=== PATIENT | male | born 1945 | race Caucasian/White ===

== ENCOUNTER 2017-06-19 19:24 | Emergency (ER) | payer OTHER, MEDICARE ==
[~2017-06-19] VITALS: Ht 175.3 cm; Wt 88.8 kg
[~2017-06-19 19:24] MED LIST: AMLODIPINE BESY10 MG PO; APRESOLINE100 MG PO; ATENOLOL25 MG PO; BUMETANIDE2 MG PO; BUPROPION HCL100 MG PO; CELLCEPT500 MG PO; CLONIDINE HCL0.1 MG PO; CO Q-1030 MG PO; CYCLOSPORINE25 M2 PO; Chronulac,Cephulac,E PO; FERROUS SULFAT325 MG PO; FUROSEMIDE20 MG PO; HYDRALAZINE HC100 MG PO; LEVAQUIN750 MG PO; LISINOPRIL20 MG PO; LISINOPRIL40 MG PO; LODINE200 MG PO; MYCOPHENOLATE250 MG PO; NYSTATIN15 GM TP; PERCOCET 5/31 TABLET PO; PRAVACHOL80 MG PO; PRAVASTATIN SOD20 MG PO; PRAVASTATIN SOD80 MG PO; PREDNISONE20 MG PO; PREDNISONE5 MG PO; TENORMIN25 MG PO; VENLAFAXINE HC100 MG PO; VENLAFAXINE HCL75 MG PO; WELLBUTRIN100 MG PO; XANAX0.5 MG PO; ZESTRIL20 MG PO
[2017-06-19 20:18] LABS: EOSINOPHIL (%) 8.5 % (0-5); EOSINOPHIL COUNT 0.9 K/uL (0-0.3); HEMATOCRIT 41.8 % (38.0-50.0); IMMATURE GRANULOCYTE (%) 0.8 % (0.0-0.7); IMMATURE GRANULOCYTE COUNT 0.1 K/uL; INSTRUMENT ABS NEUTROPHIL CT 8.1 K/uL; LYMPHOCYTE COUNT 0.3 K/uL (1.0-2.8); MCH 31.6 PG (29.0-34.0); MCHC 33.7 G/DL (30.0-36.0); MCV 93.7 FL (86-99); MEAN PLAT.VOLUME 9.7 uM^3 (9.0-12.4); MONOCYTE (%) 10.5 % (3-12); MONOCYTE COUNT 1.1 K/uL (0-0.8); NEUTROPHIL (%) 77.1 % (45-76); NEUTROPHIL COUNT 8.1 K/uL (1.8-6.4); PLATELET COUNT 214 K/uL (156-360); RBC DIS.WIDTH-CV 13.6 % (11.8-14.6); RBC DIS.WIDTH-SD 46.5 % (39-53); RED BLOOD COUNT 4.46 M/uL (4.00-5.50); WHITE BLOOD COUNT 10.5 K/uL (4.1-10.2)
[2017-06-19 20:26] LABS: CHLORIDE 106 mEq/L (99-109); POTASSIUM 4.7 mEq/L (3.7-5.4); SODIUM 139 mEq/L (136-147)
[2017-06-19 20:27] LABS: MAGNESIUM 2.1 mg/dL (1.3-2.7)
[2017-06-19 20:28] LABS: GLUCOSE 115 mg/dL (70-99)
[2017-06-19 20:30] LABS: ANION GAP 10 MEQ/L (2-14)
[2017-06-19 20:32] LABS: GFR ESTIMATE (CALCULATED) 49 mL/min/
[2017-06-19 20:33] LABS: UREA NITROGEN (BUN) 39 mg/dL (9-23)
[2017-06-19 20:41] LABS: TROP-I INTERPRETATION NEGATIVE; TROPONIN-I < 0.01 ng/mL (0.0-0.30)
[2017-06-19 23:44] LABS: TROP-I INTERPRETATION NEGATIVE; TROPONIN-I < 0.01 ng/mL (0.0-0.30)
[2017-06-20 01:48] VITALS: BP 115/71
== END 2017-06-20 01:50 | disposition home or self-care (01) ==
LOC: EME → EDBD 19:24 → EME 19:24
PROVIDERS: Emergency Medicine
PROC: 0HQ1XZZ Repair Face Skin, External Approach (ICD-10-PCS; principal; 2017-06-19)
DX: I95.1 Orthostatic hypotension (principal); S01.111A Laceration without foreign body of right eyelid and periocular area, initial encounter; T46.7X5A Adverse effect of peripheral vasodilators, initial encounter; W18.30XA Fall on same level, unspecified, initial encounter; I11.0 Hypertensive heart disease with heart failure; I50.9 Heart failure, unspecified; E11.9 Type 2 diabetes mellitus without complications; I25.2 Old myocardial infarction; F32.9 Major depressive disorder, single episode, unspecified; K21.9 Gastro-esophageal reflux disease without esophagitis; I27.20 Pulmonary hypertension, unspecified; Z86.73 Personal history of transient ischemic attack (TIA), and cerebral infarction without residual deficits; Z87.891 Personal history of nicotine dependence
CPT/HCPCS: 70450; 80048; 83735; 84484; 85025; 93005; 99281; 99285; J7030